=== PATIENT | female | born 1985 | race Caucasian/White ===

== ENCOUNTER 2019-11-26 13:32 | Observation (INO) | payer MEDICAID ==
[~2019-11-26] VITALS: Ht 162.6 cm; Wt 97.5 kg
[2019-11-26 14:19] VITALS: BP 114/66
[2019-11-26] MEDS ORDERED: INFLUENZA VACCINE QUAD 0.5 ML SYR IMVAC PRN (14:20)
[2019-11-26] MEDS ORDERED: FERR325E14 PO (14:21)
[2019-11-26] MEDS ORDERED: PREN-380 PO (14:21)
[2019-11-26 14:55] LABS: BASOPHILS % (AUTO) 0.2 % (0.0-2.0); EOSINOPHILS # (AUTO) 0.1 K/uL (0-0.4); EOSINOPHILS % (AUTO) 0.5 % (0.0-4.0); HEMATOCRIT 33.3 % (36-48); HEMOGLOBIN 11.2 g/dL (12.0-16.0); LYMPHOCYTES # (AUTO) 1.9 K/uL (2.5-16.5); LYMPHOCYTES % (AUTO) 18.2 % (20.5-51.1); MEAN CORPUSCULAR HEMOGLOBIN 28 pg (27-31); MEAN CORPUSCULAR HGB CONC 34 g/dL (33-37); MEAN CORPUSCULAR VOLUME 83.1 fL (80-94); MONOCYTES # (AUTO) 0.6 K/uL (0.8-1.0); MONOCYTES % (AUTO) 5.7 % (1.7-9.3); NEUTROPHILS # (AUTO) 7.8 K/uL (1.8-7.7); NEUTROPHILS % (AUTO) 75.4 % (42.2-75.2); PLATELET COUNT (AUTO) 320 K/uL (140-450); RED BLOOD CELL COUNT(AUTO) 4.01 MIL/uL (4.20-5.40); RED CELL DISTRIBUTION WIDTH 14.3 % (11.6-13.7); WHITE BLOOD COUNT (AUTO) 10.3 K/uL (4.8-10.8)
[2019-11-26 15:26] LABS: ALBUMIN 2.6 g/dL (3.4-5.0); ANION GAP 13.8 (8-16); CARBON DIOXIDE 26.7 mmol/L (21-32); CREATININE 0.6 mg/dL (0.6-1.3); POTASSIUM 3.5 mmol/L (3.5-5.1); TOTAL BILIRUBIN 0.1 mg/dL (0.0-1.0)
[2020-02-02] MEDS ORDERED: AMOX500C25 PO (18:03)
[2020-02-09] MEDS ORDERED: ACET-5629 PO (13:06)
[2020-02-09] MEDS ORDERED: CALC500C17 PO (13:07)
== END 2019-11-26 15:25 | disposition home or self-care (01) ==
LOC: MLD 13:32
PROVIDERS: ADMIT Obstetrics & Gynecology; ATTEND Obstetrics & Gynecology
DX: O36.8130 Decreased fetal movements, third trimester, not applicable or unspecified (principal); O34.219 Maternal care for unspecified type scar from previous cesarean delivery; O09.523 Supervision of elderly multigravida, third trimester; Z3A.24 24 weeks gestation of pregnancy
CPT/HCPCS: 36415; 80053; 81000; 85025; 86592; 86703; 86762; 86886; 86900; 86901; 87340; G0378

== ENCOUNTER 2020-01-10 08:31 | Emergency (ER) | payer MEDICAID, SELFPAY ==
[~2020-01-10] VITALS: Ht 162.6 cm; Wt 907.2 kg
[~2020-01-10 08:31] MED LIST: FERR325E14 PO; PREN-380 PO
[2020-01-10 08:35] VITALS: BP 145/83
--- NOTE | 2020-01-10 08:55 | NUR ---
Patient being evaluated by DR ZAPIEN at [facility].
--- NOTE | 2020-01-10 09:01 | NUR ---
COVIG-19 AND INFLUENZA COLLECED BY DEEPA BROOKS
--- NOTE | 2020-01-10 09:10 | NUR ---
PT REFUSED COVIG-19 BUT ALLOWED INFLUENZA SWABS
--- NOTE | 2020-01-10 09:16 | NUR ---
PT CONCERED SHE MAY HAVE THE COVIG-19 S/P FRIEND CAME BACK POSITIVE C/O BODYCAHES ONLY X 3 DAYS DENIES RESP DISTRESS OR SOB
== END 2020-01-10 09:10 | disposition home or self-care (01) ==
LOC: EEVIPCON 08:31 → MED 08:31
DX: M79.10 Myalgia, unspecified site (principal); Z20.828 Contact with and (suspected) exposure to other viral communicable diseases; Z79.899 Other long term (current) drug therapy
CPT/HCPCS: 87804; 99283

== ENCOUNTER 2020-01-10 17:18 | Emergency (ER) | payer MEDICAID, SELFPAY ==
[~2020-01-10] VITALS: Ht 162.6 cm; Wt 90.7 kg
[2020-01-10 17:27] VITALS: BP 140/78
--- NOTE | 2020-01-10 17:27 | NUR ---
MOUTH COVID SWAB DONE.
--- NOTE | 2020-01-10 17:28 | NUR ---
CAME HERE FOR MOUTH COVID TEST. C/O BODY ACHES X 4 DAYS. 34 WEEKS. COWORKER HAS COVID 19 POSITIVE.
--- NOTE | 2020-01-10 17:40 | NUR ---
Patient discharged with v/s stable. Written and verbal after care instructions given and explained. Patient verbalized understanding. Ambulatory with steady gait. All questions addressed prior to discharge. Advised to follow up with PMD.
[2020-02-02] MEDS ORDERED: AMOX500C25 PO (18:03)
[2020-02-09] MEDS ORDERED: ACET-5629 PO (13:06)
[2020-02-09] MEDS ORDERED: CALC500C17 PO (13:07)
== END 2020-01-10 17:40 | disposition home or self-care (01) ==
LOC: MED 17:18
DX: M79.10 Myalgia, unspecified site (principal); Z20.828 Contact with and (suspected) exposure to other viral communicable diseases; Z79.899 Other long term (current) drug therapy
CPT/HCPCS: 99283; C9803; U0003; 36415

== ENCOUNTER 2021-02-15 19:25 | Emergency (ER) | payer MEDICAID, OTHER ==
[~2021-02-15] VITALS: Ht 165.1 cm; Wt 81.6 kg
[~2021-02-15 19:25] MED LIST changes: +ACET-5629 PO; +CALC500C17 PO; -FERR325E14 PO
[2021-02-15 19:44] VITALS: BP 113/60
--- NOTE | 2021-02-15 19:44 | NUR ---
TO BED AMBULATORY
--- NOTE | 2021-02-15 19:50 | NUR ---
PT. IS A 35 Y/O FEMALE THAT CAME INTO ED WITH C/O OF DIARRHEA. PT. STATES THAT IT HAS BEEN GOING ON FOR 3 DAYS AND DESCRIBES IT "UPSET STOMACH WITH COLD SWEATS." SHE DENIES FEVER AND UPON ASSESSMENT, PT. RATES HER PAIN AT A 0/10 AT THIS TIME. PT. ALSO STATES THAT SHE HAS BEEN HAVING LOOSE STOOLS FOR 4-5 DAYS. DENIES N/V; SKIN IS PINK/WARM/DRY; AAOX4 WITH EVEN AND STEADY GAIT; HR EVEN AND REGULAR; PT DENIES ANY FEVER, CP, SOB, OR COUGH AT THIS TIME;VSS; PATIENT POSITIONED FOR COMFORT; HOB ELEVATED; BEDRAILS UP X2; BED DOWN. ER MD MADE AWARE OF PT STATUS.
--- NOTE | 2021-02-15 20:34 | NUR ---
PT. LAYING ON BED WITH SON, VOICES NO COMPLAINTS. AWAITING DISPOSITION.
[2021-02-15] MEDS ORDERED: ONDA-24 PO (20:37)
[2021-02-15] MEDS ORDERED: BEN10 PO (20:37)
[2021-02-15] MEDS ORDERED: CIPR500T4 PO (20:37)
[2021-02-15] MEDS ORDERED: DICYCLOMINE HCL LIQUID 10 MG/5 ML UDC PO ONE (20:40)
[2021-02-15] MEDS ORDERED: ONDANSETRON 4 MG ODT PO ONE (20:40)
[2021-02-15 21:00] VITALS: BP 113/60
--- NOTE | 2021-02-15 21:00 | NUR ---
Patient discharged with v/s stable. Written and verbal after care instructions given and explained. Patient alert, oriented and verbalized understanding of instructions. Ambulatory with steady gait. All questions addressed prior to discharge. ID band removed. Patient advised to follow up with PMD. Rx of BENTYL, CIPRO, AND ZOFRAN ODT given. Patient educated on indication of medication including possible reaction and side effects. Opportunity to ask questions provided and answered.
== END 2021-02-15 21:00 | disposition home or self-care (01) ==
LOC: MED 19:25
DX: R19.7 Diarrhea, unspecified (principal); R11.2 Nausea with vomiting, unspecified; R10.9 Unspecified abdominal pain; Z79.899 Other long term (current) drug therapy
CPT/HCPCS: 81025; 99283; Q0162